=== PATIENT | male | born 1955 | race African-American/Black ===

== ENCOUNTER 2018-11-07 05:55 | Emergency (ER) | payer MEDICAID | END 2018-11-07 11:00 | disposition home or self-care (01) | LOC: E/R 05:55 | DX: F10.920 Alcohol use, unspecified with intoxication, uncomplicated (principal); R40.2142 Coma scale, eyes open, spontaneous, at arrival to emergency department; R40.2362 Coma scale, best motor response, obeys commands, at arrival to emergency department; R40.2252 Coma scale, best verbal response, oriented, at arrival to emergency department; T73.0XXA Starvation, initial encounter; Z59.0 Homelessness | CPT/HCPCS: 99283 ==

== ENCOUNTER 2018-11-07 13:41 | Inpatient (IN) | payer MEDICAID ==
[2018-11-07 14:04] LABS: ADD MAN DIFF? NO
[2018-11-07] MEDS: SOD CHLORIDE 0.9% 500 ML IV (14:05)
[2018-11-07 14:11] LABS: WHITE BLOOD COUNT 7.2 10^3/ul (4.8-10.8)
[2018-11-07 14:11] LABS: BASOPHILS % 0.4 % (0.0-2.0); EOSINOPHILS # 0.2 10^3/ul (0.0-0.5); EOSINOPHILS % 2.2 % (0.0-7.0); HEMATOCRIT 39.9 % (42.0-52.0); HEMOGLOBIN 12.7 g/dl (14.0-18.0); LYMPHOCYTES % 14.3 % (15.0-51.0); MEAN CORPUSCULAR HEMOGLOBIN 27.3 pg (29.0-33.0); MEAN CORPUSCULAR HGB CONC 31.8 g/dl (32.0-37.0); MEAN CORPUSCULAR VOLUME 85.8 fl (82.0-101.0); MEAN PLATELET VOLUME 11.7 fl (7.4-10.4); MONOCYTE # 0.8 10^3/ul (0.3-0.9); MONOCYTES % 10.8 % (0.0-11.0); NEUTROPHIL # 5.2 10^3/ul (1.6-7.5); NEUTROPHILS % 71.7 % (39.0-77.0); PLATELET COUNT 142 10^3/UL (140-415); RED BLOOD COUNT 4.65 10^6/ul (4.70-6.10); RED CELL DISTRIBUTION WIDTH 12.8 % (11.5-14.5)
[2018-11-07 14:31] LABS: INR 0.91; PROTIME 12.4 Sec (11.9-14.9)
[2018-11-07 14:33] LABS: ALANINE AMINOTRANSFERASE 25 IU/L (13-69); ALBUMIN 3.6 g/dl (3.3-4.9); ALBUMIN/GLOBULIN RATIO 1.09; ALKALINE PHOSPHATASE 122 IU/L (42-121); ANION GAP 14 (5-13); ASPARTATE AMINO TRANSFERASE 61 IU/L (15-46); BILIRUBIN,INDIRECT 0.2 mg/dl (0-1.1); BILIRUBIN,TOTAL 0.2 mg/dl (0.2-1.3); BLOOD UREA NITROGEN 15 mg/dl (7-20); CALCIUM 9.1 mg/dl (8.4-10.2); CARBON DIOXIDE 23 mmol/L (21-31); CHLORIDE 103 mmol/L (97-110); CREATININE 0.81 mg/dl (0.61-1.24); Estimated GFR > 60 mL/min (>60); GLUCOSE 93 mg/dl (70-220); POTASSIUM 3.9 mmol/L (3.5-5.1); SODIUM 140 mmol/L (135-144); TOTAL PROTEIN 6.9 g/dl (6.1-8.1)
[2018-11-07 14:37] LABS: ETHANOL < 10.0 mg/dl (0-0)
[2018-11-07 15:25] LABS: VALPROATE < 10 ug/ml (50-100)
[2018-11-07 15:50] LABS: ADD UMIC YES; UR ASCORBIC ACID NEGATIVE (NEGATIVE); UR BACTERIA FEW /HPF (NONE SEEN); UR BILIRUBIN (Dip) NEGATIVE (NEGATIVE); UR BLOOD (Dip) 1+ mg/dL (NEGATIVE); UR CLARITY CLEAR (CLEAR); UR COLOR YELLOW (YELLOW); UR GLUCOSE (Dip) NEGATIVE (NEGATIVE); UR KETONES (Dip) NEGATIVE (NEGATIVE); UR LEUKOCYTE ESTERASE (Dip) NEGATIVE Leu/ul (NEGATIVE); UR MUCUS FEW /HPF (NONE SEEN); UR NITRITE (Dip) NEGATIVE (NEGATIVE); UR RBC 4 /HPF (0-5); UR SPECIFIC GRAVITY (Dip) 1.012 (1.003-1.030); UR TOTAL PROTEIN (Dip) NEGATIVE (NEGATIVE); UR UROBILINOGEN (Dip) 2+ mg/dL (NEGATIVE); UR WBC 4 /HPF (0-5)
[2018-11-07 16:06] LABS: BARBITURATES Negative (NEGATIVE); BENZODIAZEPINES Negative (NEGATIVE); CANNABINOIDS Negative (NEGATIVE); COCAINE Positive (NEGATIVE); OPIATES Negative (NEGATIVE)
[2018-11-07 16:18] LABS: AMPHETAMINE/METHAMPHETAMINE POSITIVE (NEGATIVE)
[2018-11-07] MEDS: LEVETIRACETAM 1000 MG (PMX) 100 ML IVPB (16:20)
[2018-11-07] MEDS ORDERED: hydrALAzine 20 MG INJ IV (18:00)
[2018-11-07] MEDS ORDERED: NACL 0.9% 3 ML SYG IV (18:00)
[2018-11-07] MEDS ORDERED: ACETAMINOPHEN 325 MG TAB PO ×2 (18:00→18:30)
[2018-11-07] MEDS ORDERED: MAGNESIUM HYDROXIDE 30ML CUP PO (18:00)
[2018-11-07] MEDS ORDERED: ALBUTEROL/IPRATROPIUM (NEB) 3 ML AMP HHN (18:00)
[2018-11-07] MEDS ORDERED: ONDANSETRON 4 MG INJ IV ×2 (18:00→18:30)
[2018-11-07] MEDS ORDERED: NITROGLYCERIN (SL) 0.4 MG TAB SL (18:00)
[2018-11-07] MEDS ORDERED: DOCUSATE SODIUM 100 MG CAP PO (18:00)
[2018-11-07 18:14] LABS: PHENYTOIN (DILANTIN) < 3.0 ug/ml (10.0-20.0)
[2018-11-07 18:24] LABS: FREE T4 (FREE THYROXINE) 2.05 ng/dl (0.78-2.44)
[2018-11-07] MEDS: morphine 2 MG INJ IV (19:45)
[2018-11-07] MEDS: SOD CHLORIDE 0.45% 1,000 ML IV (19:45)
[2018-11-07] MEDS ORDERED: LEVETIRACETAM 1000 MG (PMX) 100 ML IVPB (21:00)
[2018-11-07] MEDS: PHENYTOIN 100 MG CAP PO (21:57)
[2018-11-07] MEDS: HEPARIN 5,000 UNIT/1 ML VIAL SC (22:01)
[2018-11-08] MEDS: LEVETIRACETAM 1000 MG (PMX) 100 ML IVPB (04:19)
[2018-11-08 06:21] LABS: ADD MAN DIFF? NO
[2018-11-08 06:27] LABS: BASOPHILS % 0.6 % (0.0-2.0); EOSINOPHILS # 0.2 10^3/ul (0.0-0.5); EOSINOPHILS % 3.2 % (0.0-7.0); HEMATOCRIT 37.6 % (42.0-52.0); HEMOGLOBIN 12.1 g/dl (14.0-18.0); LYMPHOCYTES # 1.6 10^3/ul (0.8-2.9); LYMPHOCYTES % 32.7 % (15.0-51.0); MEAN CORPUSCULAR HEMOGLOBIN 27.6 pg (29.0-33.0); MEAN CORPUSCULAR HGB CONC 32.2 g/dl (32.0-37.0); MEAN CORPUSCULAR VOLUME 85.8 fl (82.0-101.0); MONOCYTE # 0.6 10^3/ul (0.3-0.9); MONOCYTES % 11.7 % (0.0-11.0); NEUTROPHIL # 2.5 10^3/ul (1.6-7.5); NEUTROPHILS % 51.4 % (39.0-77.0); PLATELET COUNT 126 10^3/UL (140-415); RED BLOOD COUNT 4.38 10^6/ul (4.70-6.10); RED CELL DISTRIBUTION WIDTH 12.8 % (11.5-14.5)
[2018-11-08 06:39] LABS: HEMOGLOBIN A1C 5.3 % (0-5.9)
[2018-11-08 06:44] LABS: CHOLESTEROL 157 mg/dl (100-200)
[2018-11-08 06:44] LABS: CHOL/HDL RATIO 2.1 RATIO; HDL CHOLESTEROL 72 mg/dl (30-78); LDL CHOLESTEROL,CALCULATED 72 mg/dl; TRIGLYCERIDES 65 mg/dl (0-149)
[2018-11-08 06:50] LABS: ANION GAP 7 (5-13); BLOOD UREA NITROGEN 11 mg/dl (7-20); CALCIUM 8.6 mg/dl (8.4-10.2); CARBON DIOXIDE 27 mmol/L (21-31); CHLORIDE 104 mmol/L (97-110); CREATININE 0.75 mg/dl (0.61-1.24); Estimated GFR > 60 mL/min (>60); GLUCOSE 73 mg/dl (70-220); MAGNESIUM 1.8 mg/dl (1.7-2.5); PHOSPHORUS 3.9 mg/dl (2.5-4.9); POTASSIUM 3.6 mmol/L (3.5-5.1); SODIUM 138 mmol/L (135-144)
[2018-11-08] MEDS: SOD CHLORIDE 0.45% 1,000 ML IV ×2 (06:53→08:55)
[2018-11-08 07:14] LABS: THYROID STIMULATING HORMONE 0.841 MIU/L (0.465-4.680)
[2018-11-08] MEDS: HEPARIN 5,000 UNIT/1 ML VIAL SC ×2 (09:01→20:45)
[2018-11-08] MEDS: AMLODIPINE 2.5 MG TAB PO (12:52)
[2018-11-08] MEDS: PHENYTOIN 1,000 MG in SOD CHLORIDE 0.9% 100 ML IV (12:52)
[2018-11-08] MEDS: LORAZEPAM 2 MG INJ IV (13:37)
[2018-11-08] MEDS ORDERED: LORAZEPAM 2 MG INJ IV (14:00)
[2018-11-08 15:52] LABS: PHENYTOIN (DILANTIN) 11.4 ug/ml (10.0-20.0)
[2018-11-08] MEDS: PHENYTOIN 100 MG CAP PO (20:42)
[2018-11-08] MEDS: LEVETIRACETAM 500 MG TAB PO (20:42)
[2018-11-09 06:20] LABS: ADD MAN DIFF? NO
[2018-11-09 06:28] LABS: BASOPHILS % 0.5 % (0.0-2.0); EOSINOPHILS # 0.1 10^3/ul (0.0-0.5); EOSINOPHILS % 3.4 % (0.0-7.0); HEMATOCRIT 40.5 % (42.0-52.0); HEMOGLOBIN 12.9 g/dl (14.0-18.0); LYMPHOCYTES # 1.5 10^3/ul (0.8-2.9); LYMPHOCYTES % 36.9 % (15.0-51.0); MEAN CORPUSCULAR HEMOGLOBIN 27.3 pg (29.0-33.0); MEAN CORPUSCULAR HGB CONC 31.9 g/dl (32.0-37.0); MEAN CORPUSCULAR VOLUME 85.6 fl (82.0-101.0); MEAN PLATELET VOLUME 11.4 fl (7.4-10.4); MONOCYTE # 0.5 10^3/ul (0.3-0.9); MONOCYTES % 11.8 % (0.0-11.0); NEUTROPHIL # 1.9 10^3/ul (1.6-7.5); NEUTROPHILS % 46.9 % (39.0-77.0); PLATELET COUNT 155 10^3/UL (140-415); RED BLOOD COUNT 4.73 10^6/ul (4.70-6.10); RED CELL DISTRIBUTION WIDTH 12.8 % (11.5-14.5)
[2018-11-09 06:28] LABS: WHITE BLOOD COUNT 4.1 10^3/ul (4.8-10.8)
[2018-11-09 07:35] LABS: ANION GAP 10 (5-13); BLOOD UREA NITROGEN 12 mg/dl (7-20); CALCIUM 8.8 mg/dl (8.4-10.2); CARBON DIOXIDE 26 mmol/L (21-31); CHLORIDE 104 mmol/L (97-110); CREATININE 0.82 mg/dl (0.61-1.24); Estimated GFR > 60 mL/min (>60); GLUCOSE 78 mg/dl (70-220); POTASSIUM 3.7 mmol/L (3.5-5.1); SODIUM 140 mmol/L (135-144)
[2018-11-09] MEDS: LEVETIRACETAM 500 MG TAB PO ×2 (08:16→20:28)
[2018-11-09] MEDS: HEPARIN 5,000 UNIT/1 ML VIAL SC ×2 (08:17→20:30)
[2018-11-09] MEDS: AMLODIPINE 2.5 MG TAB PO (09:57)
[2018-11-09] MEDS: PHENYTOIN 100 MG CAP PO ×2 (16:16→20:28)
[2018-11-10 06:46] LABS: ADD MAN DIFF? NO
[2018-11-10 06:57] LABS: WHITE BLOOD COUNT 3.7 10^3/ul (4.8-10.8)
[2018-11-10 06:57] LABS: BASOPHILS % 0.5 % (0.0-2.0); EOSINOPHILS # 0.2 10^3/ul (0.0-0.5); EOSINOPHILS % 4.3 % (0.0-7.0); HEMATOCRIT 41.1 % (42.0-52.0); LYMPHOCYTES # 1.4 10^3/ul (0.8-2.9); MEAN CORPUSCULAR HEMOGLOBIN 27.4 pg (29.0-33.0); MEAN CORPUSCULAR HGB CONC 31.6 g/dl (32.0-37.0); MEAN CORPUSCULAR VOLUME 86.5 fl (82.0-101.0); MEAN PLATELET VOLUME 11.4 fl (7.4-10.4); MONOCYTE # 0.5 10^3/ul (0.3-0.9); MONOCYTES % 13.3 % (0.0-11.0); NEUTROPHIL # 1.6 10^3/ul (1.6-7.5); NEUTROPHILS % 44.4 % (39.0-77.0); PLATELET COUNT 157 10^3/UL (140-415); RED BLOOD COUNT 4.75 10^6/ul (4.70-6.10); RED CELL DISTRIBUTION WIDTH 12.4 % (11.5-14.5)
[2018-11-10 07:14] LABS: PHENYTOIN (DILANTIN) 10.3 ug/ml (10.0-20.0)
[2018-11-10 07:30] LABS: ANION GAP 8 (5-13); BLOOD UREA NITROGEN 13 mg/dl (7-20); CALCIUM 8.8 mg/dl (8.4-10.2); CARBON DIOXIDE 27 mmol/L (21-31); CHLORIDE 105 mmol/L (97-110); CREATININE 0.77 mg/dl (0.61-1.24); Estimated GFR > 60 mL/min (>60); GLUCOSE 85 mg/dl (70-220); POTASSIUM 3.8 mmol/L (3.5-5.1); SODIUM 140 mmol/L (135-144)
[2018-11-10] MEDS: AMLODIPINE 2.5 MG TAB PO (08:39)
[2018-11-10] MEDS: LEVETIRACETAM 500 MG TAB PO ×2 (08:39→20:52)
[2018-11-10] MEDS: PHENYTOIN 100 MG CAP PO ×2 (08:39→20:52)
[2018-11-10] MEDS: HEPARIN 5,000 UNIT/1 ML VIAL SC ×2 (08:44→20:58)
[2018-11-11] MEDS: HYDROCODONE/APAP (5/325) TAB PO (04:39)
[2018-11-11 07:01] LABS: ADD MAN DIFF? NO
[2018-11-11 07:05] LABS: BASOPHILS % 0.8 % (0.0-2.0); EOSINOPHILS # 0.2 10^3/ul (0.0-0.5); EOSINOPHILS % 4.8 % (0.0-7.0); HEMATOCRIT 41.8 % (42.0-52.0); HEMOGLOBIN 13.6 g/dl (14.0-18.0); LYMPHOCYTES # 1.5 10^3/ul (0.8-2.9); LYMPHOCYTES % 37.2 % (15.0-51.0); MEAN CORPUSCULAR HEMOGLOBIN 27.7 pg (29.0-33.0); MEAN CORPUSCULAR HGB CONC 32.5 g/dl (32.0-37.0); MEAN CORPUSCULAR VOLUME 85.1 fl (82.0-101.0); MEAN PLATELET VOLUME 11.3 fl (7.4-10.4); MONOCYTE # 0.6 10^3/ul (0.3-0.9); MONOCYTES % 15.4 % (0.0-11.0); NEUTROPHIL # 1.6 10^3/ul (1.6-7.5); PLATELET COUNT 171 10^3/UL (140-415); RED BLOOD COUNT 4.91 10^6/ul (4.70-6.10); RED CELL DISTRIBUTION WIDTH 12.7 % (11.5-14.5)
[2018-11-11 07:38] LABS: ANION GAP 6 (5-13); BLOOD UREA NITROGEN 12 mg/dl (7-20); CALCIUM 8.8 mg/dl (8.4-10.2); CARBON DIOXIDE 26 mmol/L (21-31); CHLORIDE 108 mmol/L (97-110); CREATININE 0.75 mg/dl (0.61-1.24); Estimated GFR > 60 mL/min (>60); GLUCOSE 92 mg/dl (70-220); POTASSIUM 3.8 mmol/L (3.5-5.1); SODIUM 140 mmol/L (135-144)
[2018-11-11 07:43] LABS: PHENYTOIN (DILANTIN) 11.4 ug/ml (10.0-20.0)
[2018-11-11] MEDS: PHENYTOIN 100 MG CAP PO (08:06)
[2018-11-11] MEDS: LEVETIRACETAM 500 MG TAB PO (08:06)
[2018-11-11] MEDS: AMLODIPINE 2.5 MG TAB PO (08:06)
[2018-11-11] MEDS: HEPARIN 5,000 UNIT/1 ML VIAL SC (08:12)
== END 2018-11-11 16:12 | disposition home or self-care (01) | DRG 101 ==
LOC: 6WM 11-11 12:20 → E/R 13:41 → TEL 18:15
DX: G40.909 Epilepsy, unspecified, not intractable, without status epilepticus (principal); I10 Essential (primary) hypertension; Z91.19 Patient's noncompliance with other medical treatment and regimen; Z59.0 Homelessness
CPT/HCPCS: 70450; 71045; 80048; 80053; 80061; 80164; 80185; 80307; 81001; 83036; 83735; 84100; 84439; 84443; 85025; 85610; 87081; 95819; 96374; 97161; 99285-25